=== PATIENT | male | born 1980 | race African-American/Black ===

== ENCOUNTER 2016-08-09 13:21 | Emergency (ER) | payer SELFPAY ==
[~2016-08-09] VITALS: Ht 182.9 cm; Wt 140.0 kg
[~2016-08-09 13:21] MED LIST: AUGM875T PO
[2016-08-09 13:22] VITALS: BP 121/71; PULSE 88; RESP 20; TEMP 98.9; O2SAT 95
[2016-08-09] MEDS ORDERED: HYDR-3533 PO ×2 (13:56→14:05)
[2016-08-09] MEDS ORDERED: PENI250T59 PO (13:56)
[2016-08-09] MEDS ORDERED: IBUP800T23 PO (13:56)
[2016-08-09] MEDS ORDERED: MAGICADU2 SWISH-SWAL (13:56)
--- NOTE | 2016-08-09 14:01 | PD ---
HPI Chief Complaint: Oral / Dental Pain or Problem Time Seen by Provider: 13:57 Travel History International Travel<30 days: No Contact w/Intl Traveler<30days: No Traveled to known affect area: No History of Present Illness HPI 36-year-old male that presents to the ED for evaluation of right lower dental pain and swelling. Per patient is started today. Per patient he does have about 2 in the area. He states that the pain is 10 out of 10. Denies any chest pain or shortness of breath. No purulence. Patient has not seen anybody for this. Per patient he went to work and he came in early because he couldn't stand the pain. He been taking Aleve with minimal difficulty but minimal relief as well. He has no allergies to medication. She currently has no dentist. Denies any fevers chills or sweats. PFSH Past Medical History Blood Disorders: No Cancer: No Cardiovascular Problems: No Chemotherapy: No Diminished Hearing: No Endocrine: No Genitourinary: No Musculoskeletal: No Neurologic: No Psychiatric: No Respiratory: No Immunizations Current: Yes Radiation Therapy: No Past Surgical History Other Surgery: Yes Social History Alcohol Use: Yes (RARE) Tobacco Use: No Substance Use: No (denies) Allergies-Medications (Allergen,Severity, Reaction): Coded Allergies: No Known Allergies (Unverified , 08/09/16) Reported Meds & Prescriptions Reported Meds & Active Scripts Active Magic Mouthwash Adult Liq (Multi-Ingredient Mouthwash/Gargle) 120 Ml Susp 5 Ml SWISH-SWAL ACHS Each 5 mL contains: Nystatin 200,000 units, Diphenhydramine 4.25 mg, Viscous Lidocaine 10 mg, Padgett syrup 0.8 mL Lortab (Hydrocodone-Acetaminophen) 5-325 Mg Tab 1 Tab PO Q6H PRN Ibuprofen 800 Mg Tab 800 Mg PO Q8H PRN Penicillin Vk (Penicillin V Potassium) 250 Mg Tab 250 Mg PO Q6H 14 Days Review of Systems Except as stated in HPI: all other systems reviewed are Neg Physical Exam Narrative GENERAL: SKIN: Warm and dry. HEAD: Atraumatic. Normocephalic. EYES: Pupils equal and round. No scleral icterus. No injection or drainage. ENT: No nasal bleeding or discharge. Mucous membranes pink and moist. Tongue is midline. No uvula deviation. Dental: Patient has no dentition throughout but more noted on the right lower premolar #1 which has a big cavity. Patient does have some swelling of the gum but no sign of purulence noted. Tenderness to palpation in this area. No lymphadenopathy noted. No other masses or deformities noted at this time. NECK: Trachea midline. No JVD. CARDIOVASCULAR: Regular rate and rhythm. RESPIRATORY: No accessory muscle use. Clear to auscultation. Breath sounds equal bilaterally. Data Data Last Documented VS Vital Signs Date Time Temp Pulse Resp B/P Pulse Ox O2 Delivery O2 Flow Rate FiO2 08/09/16 13:22 98.9 88 20 121/71 95 Room Air MDM Medical Decision Making Medical Screen Exam Complete: Yes Emergency Medical Condition: Yes Medical Record Reviewed: Yes Differential Diagnosis Dental abscess versus dental infection versus dentalgia Narrative Course 36-year-old male that presents to the ED for evaluation of dental pain. Patient was properly examined and was found to have signs and symptoms consistent with dental infection. Patient will be treated with this with penicillin, Magic mouthwash, Lortab, ibuprofen. Told to follow closely with PCP. See dentist. See ED worsening symptoms. Ice to the area. Note for work given Diagnosis Primary Impression: Dentalgia Patient Instructions: General Instructions Departure Forms: Tests/Procedures, Work Release Enter return to work date: Aug 11, 2016 Additional Instructions: Take medications as prescribed. Follow-up with dentist See ED for any worsening symptoms. Do not drink or drive while taking pain medication. Apply ice or heat as needed for pain Med/Other Pt SpecificInfo: Prescription(s) given Scripts Aktxuout-Dnyqizmpmqzefkn-Qtuuyfjvg Liq (Magic Mouthwash Adult Liq)120 Ml Susp5 Ml SWISH-SWAL ACHS #120 ML Ref 0 Each 5 mL contains: Nystatin 200,000 units, Diphenhydramine 4.25 mg, Viscous Lidocaine 10 mg, Padgett syrup 0.8 mL Prov:Humberto Jiang MD 08/09/16 Hydrocodone-Acetaminophen (Lortab)5-325 Mg Tab1 Tab PO Q6H PRN (PAIN) #20 TAB Prov:Humberto Jiang MD 08/09/16 Ibuprofen 800 Mg [id number] Mg PO Q8H PRN (Pain/Inflammation) #30 TAB Prov:Humberto Jiang MD 08/09/16 Penicillin V Potassium (Penicillin Vk)250 Mg [id number] Mg PO Q6H 14 Days Prov:Humberto Jiang MD 08/09/16 Disposition: 01 DISCHARGE HOME Condition: Stable Juan Pickens Aug 09, 2016 14:01
== END 2016-08-09 14:15 | disposition home or self-care (01) ==
LOC: NEPB 13:21
DX: K08.89 Other specified disorders of teeth and supporting structures (principal)
CPT/HCPCS: 99282

== ENCOUNTER 2016-08-12 19:17 | Emergency (ER) | payer SELFPAY ==
[~2016-08-12] VITALS: Ht 182.9 cm; Wt 142.0 kg
[~2016-08-12 19:17] MED LIST changes: -AUGM875T PO; +HYDR-3533 PO; +IBUP800T23 PO; +MAGICADU2 SWISH-SWAL; +PENI250T59 PO
[2016-08-12 19:24] VITALS: BP 128/79; PULSE 94; RESP 16; TEMP 99; O2SAT 96
[2016-08-12] MEDS ORDERED: CLIN150 PO (20:12)
[2016-08-12] MEDS ORDERED: CLINDAMYCIN 150 MG CAP PO ONE (20:15)
--- NOTE | 2016-08-12 20:16 | PD ---
HPI Chief Complaint: Oral / Dental Pain or Problem Time Seen by Provider: 20:13 Travel History International Travel<30 days: No Contact w/Intl Traveler<30days: No Traveled to known affect area: No History of Present Illness HPI 36-year-old black male presents to emergency Department with complaints of worsening dental abscess. He was seen here in the ER for days ago was given Pen -Vee K, Magic mouthwash and Lortab. The patient states that he has had increasing pain, swelling to the right lower mandible. While he was waiting to be seen and area opened up in his mouth and is now draining pus. He states that his face actually feels much better. He denies any fever or chills. No difficulty swallowing. PFSH Past Medical History Medical History: Denies Significant Hx Blood Disorders: No Cancer: No Cardiovascular Problems: No Chemotherapy: No Diminished Hearing: No Endocrine: No Genitourinary: No Musculoskeletal: No Neurologic: No Psychiatric: No Respiratory: No Immunizations Current: Yes Radiation Therapy: No Tetanus Vaccination: > 5 Years Influenza Vaccination: No Past Surgical History Surgical History: No Previous Surgery Other Surgery: Yes Social History Alcohol Use: Yes (RARE) Tobacco Use: No Substance Use: No (denies) Allergies-Medications (Allergen,Severity, Reaction): Coded Allergies: No Known Allergies (Unverified , 08/12/16) Reported Meds & Prescriptions Reported Meds & Active Scripts Active Lortab (Hydrocodone-Acetaminophen) 5-325 Mg Tab 1 Tab PO Q6H PRN Magic Mouthwash Adult Liq (Multi-Ingredient Mouthwash/Gargle) 120 Ml Susp 5 Ml SWISH-SWAL ACHS Each 5 mL contains: Nystatin 200,000 units, Diphenhydramine 4.25 mg, Viscous Lidocaine 10 mg, Padgett syrup 0.8 mL Ibuprofen 800 Mg Tab 800 Mg PO Q8H PRN Penicillin Vk (Penicillin V Potassium) 250 Mg Tab 250 Mg PO Q6H 14 Days Review of Systems Except as stated in HPI: all other systems reviewed are Neg General / Constitutional: No: Fever, Chills Eyes: No: Blurred Vision, Pain HENT: Positive: Gingival Bleeding, Dental Difficulties, No: Sore Throat, Congestion, Earache Cardiovascular: No: Chest Pain or Discomfort, Palpitations Respiratory: No: Cough, Shortness of Breath Physical Exam Narrative GENERAL: Well-developed, well-nourished in no acute distress. Nontoxic appearing. HEAD: Normocephalic, atraumatic. EYES: Pupils equal round and reactive. Extraocular motions intact. No scleral icterus. No injection or drainage. ENT: TMs clear without erythema. The external auditory canals clear. Nose: clear . Posterior pharynx is pink and moist. No tonsillar edema or exudate. Uvula midline. Airway patent. Patient has had multiple dental extractions. He points to his right lower mandible in the area of his premolars. There is an area of erythema and gingival distention between the buccal mucosa. There is an open draining dental abscess. NECK: Trachea midline.Supple, nontender, moves head freely. No central bony tenderness or spasm. CARDIOVASCULAR: Regular rate and rhythm without murmurs, gallops, or rubs. RESPIRATORY: Clear to auscultation. Breath sounds equal bilaterally. No wheezes , rales, or rhonchi. GASTROINTESTINAL: Abdomen soft, non-tender, nondistended. No hepato-splenomegaly , or palpable masses. No guarding. EXTREMITIES: No clubbing, cyanosis, or edema. No joint tenderness, effusion, or edema noted. BACK: Nontender without deformity or crepitance. No flank tenderness. Data Data Last Documented VS Vital Signs Date Time Temp Pulse Resp B/P Pulse Ox O2 Delivery O2 Flow Rate FiO2 08/12/16 19:24 99.0 94 16 128/79 96 Room Air Orders Clindamycin (Cleocin) (08/12/16 20:15) [facility] Medical Decision Making Medical Screen Exam Complete: Yes Emergency Medical Condition: Yes Medical Record Reviewed: Yes Differential Diagnosis MDM: Moderate Differential diagnoses: Dental abscess, dental caries, osteitis, cellulitis Narrative Course Patient is given clindamycin 300 mg by mouth. At this point it dental abscess is draining no additional drainage is required. This is dental abscess Diagnosis Primary Impression: Dental abscess Patient Instructions: General Instructions Additional Instructions: Rest. [place] gargles. [place] oil on cotton balls. Clindamycin follow-up with a dentist as soon as possible. And return to the ER if any problems. Med/Other Pt SpecificInfo: Prescription(s) given Scripts Clindamycin (Cleocin)150 Mg [id number] Mg PO Q6H #80 CAP Prov:Soontharothai,Rewadee MD 08/12/16 Disposition: 01 DISCHARGE HOME Condition: Stable Sergio Sun Aug 12, 2016 20:16
== END 2016-08-12 20:41 | disposition home or self-care (01) ==
LOC: NEPB 19:17
DX: K04.7 Periapical abscess without sinus (principal)
CPT/HCPCS: 99282

== ENCOUNTER 2016-12-03 16:52 | Emergency (ER) | payer SELFPAY ==
[~2016-12-03] VITALS: Ht 182.9 cm; Wt 140.0 kg
[2016-12-03 16:53] VITALS: BP 138/87; PULSE 79; RESP 16; TEMP 97.9; O2SAT 95
--- NOTE | 2016-12-03 16:58 | PD ---
Physical Exam Time Seen by Provider: 16:55 Narrative 36yo M c/o chest tightness and SOB x2 days. Continuous. Denies chest pain, heart palpitations. Denies upper respiratory symptoms. Cameron hemoptysis. Denies hx COPD, asthma, tobacco use. VS reviewed. Patient seen in triage. Awaiting bed placement. Data Data Last Documented VS Vital Signs Date Time Temp Pulse Resp B/P Pulse Ox O2 Delivery O2 Flow Rate FiO2 12/03/16 16:53 97.9 79 16 138/87 95 MDM Supervised Visit with MONIKA: Rossy Serrano December 03, 2016 16:58
[2016-12-03 17:00] VITALS: O2SAT 98
[2016-12-03 17:04] VITALS: BP 138/77; PULSE 82; RESP 17; O2SAT 98
[2016-12-03] MEDS ORDERED: ASPIRIN 81 MG CHEW TAB PO ONE (17:15)
[2016-12-03] MEDS ORDERED: SODIUM CHLORID 0.9% 500 ML INJ 500 ML IV ONE (17:15)
[2016-12-03] MEDS ORDERED: NITROGLYCERIN 0.4 MG SL 25 TABS/BTL SL ONE (17:15)
[2016-12-03] MEDS ORDERED: SODIUM CHLORIDE 0.9% FLUSH 10 ML FLUSH IVF PRN (17:15)
--- NOTE | 2016-12-03 17:18 | PD ---
HPI Chief Complaint: Chest Pain Time Seen by Provider: 16:59 Travel History International Travel<30 days: No Contact w/Intl Traveler<30days: No Traveled to known affect area: No History of Present Illness HPI The patient is a 36-year-old after [place] male who presents emergency department for chest pain. The patient states he developed chest pain 2 days ago. The chest pain is substernal, heavy and pressure-like, nonradiating, and associated mild shortness of breath. The patient states pain is worse with inspiration and activity. The patient denies any nausea, vomiting, or diaphoresis. The patient denies any history of CAD, hypertension, hyperlipidemia, diabetes, tobacco use, or significant family medical history of early coronary artery disease. 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 The patient denies any recent fever, chills, sweats, or cough. Symptoms are moderate, slightly exacerbated by inspiration, and there are no current alleviating factors. He denies any history of pulmonary embolism or DVT. PFSH Past Medical History Medical History: Denies Significant Hx Blood Disorders: No Cancer: No Cardiovascular Problems: No Chemotherapy: No Diminished Hearing: No Endocrine: No Genitourinary: No Musculoskeletal: No Neurologic: No Psychiatric: No Respiratory: No Immunizations Current: Yes Radiation Therapy: No ?: Not Past Surgical History Surgical History: No Previous Surgery Other Surgery: Yes Social History Alcohol Use: Yes (RARE) Tobacco Use: No Substance Use: No (denies) Allergies-Medications (Allergen,Severity, Reaction): Coded Allergies: No Known Allergies (Unverified , 12/03/16) Reported Meds & Prescriptions Reported Meds & Active Scripts Active No Active Prescriptions or Reported Medications Physical Exam Narrative GENERAL: Awake, alert, pleasant 36-year-old male who appears his stated age is in no acute respiratory distress. SKIN: Focused skin assessment warm/dry. HEAD: Atraumatic. Normocephalic. EYES: Pupils equal and round. No scleral icterus. No injection or drainage. ENT: No nasal bleeding or discharge. Mucous membranes pink and moist. NECK: Trachea midline. No JVD. CARDIOVASCULAR: Regular rate and rhythm. No murmur appreciated. Palpation of the chest wall does not reproduce symptoms. Gynecomastia noted. RESPIRATORY: No accessory muscle use. Clear to auscultation. Breath sounds equal bilaterally. GASTROINTESTINAL: Abdomen soft, non-tender, nondistended. No rebound tenderness. MUSCULOSKELETAL: No obvious deformities. No clubbing. No cyanosis. No edema. NEUROLOGICAL: Awake and alert. No obvious cranial nerve deficits. Motor grossly within normal limits. Normal speech. PSYCHIATRIC: Appropriate mood and affect; insight and judgment normal. Data Data Last Documented VS Vital Signs Date Time Temp Pulse Resp B/P Pulse Ox O2 Delivery O2 Flow Rate FiO2 12/03/16 17:30 72 15 124/74 99 Room Air 12/03/16 16:53 97.9 Orders Electrocardiogram (12/03/16 ) Electrocardiogram (12/03/16 17:08) Ckmb (Isoenzyme) Profile (12/03/16 17:08) Complete Blood Count With Diff (12/03/16 17:08) Comprehensive Metabolic Panel (12/03/16 17:08) Magnesium (Mg) (12/03/16 17:08) Prothrombin Time / Inr (Pt) (12/03/16 17:08) Act Partial Throm Time (Ptt) (12/03/16 17:08) Troponin I (12/03/16 17:08) Lipase (12/03/16 17:08) Chest, Single Ap (12/03/16 17:08) Ecg Monitoring (12/03/16 17:08) Bilateral Bp Monitoring (12/03/16 17:08) Iv Access Insert/Monitor (12/03/16 17:08) Oximetry (12/03/16 17:08) Oxygen Administration (12/03/16 17:08) Aspirin Chew (Aspirin Chew) (12/03/16 17:15) Sodium Chloride 0.9% Flush (Ns Flush) (12/03/16 17:15) Nitroglycerin Sl (Nitrostat Sl) (12/03/16 17:15) Sodium Chlorid 0.9% 500 Ml Inj (Ns 500 M (12/03/16 17:15) CKMB (12/03/16 17:10) CKMB% (12/03/16 17:10) Troponin I (12/03/16 20:10) Labs Laboratory Tests Test 12/03/16 17:10 White Blood Count 5.3 TH/MM3 Red Blood Count 5.53 MIL/MM3 Hemoglobin 13.5 GM/DL Hematocrit 43.0 % Mean Corpuscular Volume 77.8 FL Mean Corpuscular Hemoglobin 24.3 PG Mean Corpuscular Hemoglobin 31.3 % Concent Red Cell Distribution Width 15.0 % Platelet Count 234 TH/MM3 Mean Platelet Volume 8.1 FL Neutrophils (%) (Auto) 49.8 % Lymphocytes (%) (Auto) 41.1 % Monocytes (%) (Auto) 7.6 % Eosinophils (%) (Auto) 1.1 % Basophils (%) (Auto) 0.4 % Neutrophils # (Auto) 2.7 TH/MM3 Lymphocytes # (Auto) 2.2 TH/MM3 Monocytes # (Auto) 0.4 TH/MM3 Eosinophils # (Auto) 0.1 TH/MM3 Basophils # (Auto) 0.0 TH/MM3 CBC Comment AUTO DIFF Differential Comment AUTO DIFF CONFIRMED Platelet Estimate LOW Platelet Morphology Comment ENLARGED Ovalocytes 1+ Prothrombin Time 10.0 SEC Prothromb Time International 0.9 RATIO Ratio Activated Partial 29.4 SEC Thromboplast Time Sodium Level 142 MEQ/L Potassium Level 4.0 MEQ/L Chloride Level 104 MEQ/L Carbon Dioxide Level 29.8 MEQ/L Anion Gap 8 MEQ/L Blood Urea Nitrogen 8 MG/DL Creatinine 1.06 MG/DL Estimat Glomerular Filtration 97 ML/MIN Rate Random Glucose 96 MG/DL Calcium Level 9.3 MG/DL Magnesium Level 2.2 MG/DL Total Bilirubin 0.6 MG/DL Aspartate Amino Transf 27 U/L (AST/SGOT) Alanine Aminotransferase 44 U/L (ALT/SGPT) Alkaline Phosphatase 78 U/L Total Creatine Kinase 581 U/L Creatine Kinase MB 5.2 NG/ML Creatine Kinase MB % 0.9 % Troponin I LESS THAN 0.02 NG/ML Total Protein 8.0 GM/DL Albumin 3.8 GM/DL Lipase 86 U/L [facility] Medical Decision Making Medical Screen Exam Complete: Yes Emergency Medical Condition: Yes Medical Record Reviewed: Yes Interpretation(s) EKG reveals normal sinus rhythm with a rate of 76. J-point elevation noted, appears to be early repolarization. Q wave with inverted T-wave in lead 3. Differential Diagnosis Differential diagnosis includes acute coronary syndrome, GERD, esophageal spasm , esophagitis, pulmonary embolism, deconditioning, pleural effusion, pericarditis, pericardial effusion, costochondritis. Narrative Course IV was established, labs were drawn and sent, and the patient was placed on cardiac telemetry monitoring and continuous pulse oximetry monitoring. EKG was ordered and interpreted. The patient was administered aspirin and nitroglycerin sublingual. Chest x-ray was obtained. Chest x-rays negative. Initial troponin is unremarkable. EKG reveals J-point elevation with early repolarization. The patient was reevaluated at 6 PM, he was asymptomatic. I had a discussion with the patient guarding 23 hour observation in the chest pain Center, however, the patient states his work at 5 AM does not want to miss work. The patient was agreeable to stay for a second troponin, if negative, he will be discharged home, if positive, admitted. Therefore, the patient was signed out to the oncoming physician at 7 PM with second troponin pending. Diagnosis Primary Impression: Atypical chest pain Patient Instructions: General Instructions Additional Instructions: Take a baby aspirin daily. Follow-up with her primary physician, you may benefit from outpatient stress test. Return if symptoms worsen or progress. Med/Other Pt SpecificInfo: Other (take a baby aspirin daily.) Scripts No Active Prescriptions or Reported Meds Disposition: 01 DISCHARGE HOME Condition: Stable Humberto Jiang MD December 03, 2016 17:18
[2016-12-03 17:25] LABS: AUTOMATED NEUTROPHIL # 2.7 TH/MM3 (1.8-7.7); BASOPHIL % 0.4 % (0.0-2.0); EOSINOPHIL # 0.1 TH/MM3 (0-0.4); EOSINOPHIL % 1.1 % (0.0-4.0); LYMPH % 41.1 % (9.0-44.0); LYMPHOCYTE # 2.2 TH/MM3 (1.0-4.8); MEAN CELL VOLUME 77.8 FL (80.0-100.0); MEAN CORPUSCULAR HEMOGLOBIN 24.3 PG (27.0-34.0); MEAN CORPUSCULAR HGB CONC 31.3 % (32.0-36.0); MONO % 7.6 % (0.0-8.0); NEUT % 49.8 % (16.0-70.0); PLATELET COUNT 234 TH/MM3 (150-450); RED BLOOD COUNT 5.53 MIL/MM3 (4.50-5.90); WHITE BLOOD COUNT 5.3 TH/MM3 (4.0-11.0)
[2016-12-03 17:26] LABS: HEMO FLAGS AUTO DIFF
[2016-12-03 17:30] VITALS: BP 124/74; PULSE 72; RESP 15; O2SAT 99
--- NOTE | 2016-12-03 17:36 | RADRPT ---
EXAM DATE/TIME: 12/03/2016 17:21 [facility] COMPARISON: No previous studies available for comparison. INDICATIONS : Chest pain. MEDICAL HISTORY : None. SURGICAL HISTORY : None. ENCOUNTER: Initial ACUITY: 1 day PAIN SCORE: 6/10 LOCATION: Bilateral chest FINDINGS: Heart is mildly enlarged. Lungs are hypoaerated. There are no consolidating infiltrates or evidence of significant congestion. CONCLUSION: Mild cardiomegaly No acute disease. Tr Hoff MD on December 03, 2016 at 17:34 Board Certified Radiologist. This report was verified electronically.
[2016-12-03 17:37] LABS: APTT (PATIENT) 29.4 SEC (24.3-30.1); INTERNATIONAL NORMALIZED RATIO 0.9 RATIO
[2016-12-03 17:43] LABS: ALT (GPT) 44 U/L (12-78); ANION GAP 8 MEQ/L (5-15); AST (GOT) 27 U/L (15-37); BICARBONATE 29.8 MEQ/L (21.0-32.0); BLOOD UREA NITROGEN 8 MG/DL (7-18); CHLORIDE 104 MEQ/L (98-107); GLOMERULAR FILTRATION RATE 97 ML/MIN (>89); MAGNESIUM 2.2 MG/DL (1.5-2.5); SODIUM (NA) 142 MEQ/L (136-145)
[2016-12-03 17:46] LABS: ALKALINE PHOSPHATASE 78 U/L (45-117); CREATINE KINASE 581 U/L (39-308); TOTAL BILIRUBIN ADULT 0.6 MG/DL (0.2-1.0)
[2016-12-03 17:59] LABS: CKMB 5.2 NG/ML (0.5-3.6)
[2016-12-03 18:00] LABS: OVALOCYTES 1+ (NORMAL); PLATELET ESTIMATE SMEAR LOW (NORMAL); PLATELET MORPHOLOGY ENLARGED (NORMAL); SCAN/DIFF AUTO DIFF CONFIRMED
--- NOTE | 2016-12-03 22:20 | PD ---
Data Data Last Documented VS Vital Signs Date Time Temp Pulse Resp B/P Pulse Ox O2 Delivery O2 Flow Rate FiO2 12/03/16 17:30 72 15 124/74 99 Room Air 12/03/16 16:53 97.9 Orders Electrocardiogram (12/03/16 ) Electrocardiogram (12/03/16 17:08) Ckmb (Isoenzyme) Profile (12/03/16 17:08) Complete Blood Count With Diff (12/03/16 17:08) Comprehensive Metabolic Panel (12/03/16 17:08) Magnesium (Mg) (12/03/16 17:08) Prothrombin Time / Inr (Pt) (12/03/16 17:08) Act Partial Throm Time (Ptt) (12/03/16 17:08) Troponin I (12/03/16 17:08) Lipase (12/03/16 17:08) Chest, Single Ap (12/03/16 17:08) Ecg Monitoring (12/03/16 17:08) Bilateral Bp Monitoring (12/03/16 17:08) Iv Access Insert/Monitor (12/03/16 17:08) Oximetry (12/03/16 17:08) Oxygen Administration (12/03/16 17:08) Aspirin Chew (Aspirin Chew) (12/03/16 17:15) Sodium Chloride 0.9% Flush (Ns Flush) (12/03/16 17:15) Nitroglycerin Sl (Nitrostat Sl) (12/03/16 17:15) Sodium Chlorid 0.9% 500 Ml Inj (Ns 500 M (12/03/16 17:15) CKMB (12/03/16 17:10) CKMB% (12/03/16 17:10) Troponin I (12/03/16 20:10) Labs Laboratory Tests Test 12/03/16 12/03/16 17:10 20:05 White Blood Count 5.3 TH/MM3 Red Blood Count 5.53 MIL/MM3 Hemoglobin 13.5 GM/DL Hematocrit 43.0 % Mean Corpuscular Volume 77.8 FL Mean Corpuscular Hemoglobin 24.3 PG Mean Corpuscular Hemoglobin 31.3 % Concent Red Cell Distribution Width 15.0 % Platelet Count 234 TH/MM3 Mean Platelet Volume 8.1 FL Neutrophils (%) (Auto) 49.8 % Lymphocytes (%) (Auto) 41.1 % Monocytes (%) (Auto) 7.6 % Eosinophils (%) (Auto) 1.1 % Basophils (%) (Auto) 0.4 % Neutrophils # (Auto) 2.7 TH/MM3 Lymphocytes # (Auto) 2.2 TH/MM3 Monocytes # (Auto) 0.4 TH/MM3 Eosinophils # (Auto) 0.1 TH/MM3 Basophils # (Auto) 0.0 TH/MM3 CBC Comment AUTO DIFF Differential Comment AUTO DIFF CONFIRMED Platelet Estimate LOW Platelet Morphology Comment ENLARGED Ovalocytes 1+ Prothrombin Time 10.0 SEC Prothromb Time International 0.9 RATIO Ratio Activated Partial 29.4 SEC Thromboplast Time Sodium Level 142 MEQ/L Potassium Level 4.0 MEQ/L Chloride Level 104 MEQ/L Carbon Dioxide Level 29.8 MEQ/L Anion Gap 8 MEQ/L Blood Urea Nitrogen 8 MG/DL Creatinine 1.06 MG/DL Estimat Glomerular Filtration 97 ML/MIN Rate Random Glucose 96 MG/DL Calcium Level 9.3 MG/DL Magnesium Level 2.2 MG/DL Total Bilirubin 0.6 MG/DL Aspartate Amino Transf 27 U/L (AST/SGOT) Alanine Aminotransferase 44 U/L (ALT/SGPT) Alkaline Phosphatase 78 U/L Total Creatine Kinase 581 U/L Creatine Kinase MB 5.2 NG/ML Creatine Kinase MB % 0.9 % Troponin I LESS THAN 0.02 LESS THAN 0.02 NG/ML NG/ML Total Protein 8.0 GM/DL Albumin 3.8 GM/DL Lipase 86 U/L MDM Supervised Visit with MONIKA: Yes Narrative Course 36 old man with chest pain, sign-up to follow-up a repeat troponin. Troponin negative. Diagnosis Primary Impression: Atypical chest pain Patient Instructions: General Instructions Additional Instruction: Take a baby aspirin daily. Follow-up with her primary physician, you may benefit from outpatient stress test. Return if symptoms worsen or progress. Scripts No Active Prescriptions or Reported Meds Disposition: 01 DISCHARGE HOME Condition: Stable Greg Avelar MD December 03, 2016 22:20
--- NOTE | 2016-12-04 17:08 | EKG ---
Date Performed: 12/03/2016 Time Performed: 17:05:40 PTAGE: 36 years EKG: Sinus rhythm ST ELEVATION, PROBABLY EARLY REPOLARIZATION BORDERLINE ECG There is evidence of ST elevation inferio r and anterolaterally. Most likely early repolarization. This may also represent pericarditis. NO PREVIOUS TRACING DOCTOR: Kerry Can Interpretating Date/Time 12/04/2016 17:07:29
--- NOTE | 2016-12-04 17:09 | EKG ---
Date Performed: 12/03/2016 Time Performed: 20:05:14 PTAGE: 36 years EKG: Sinus rhythm EARLY REPOLARIZATION BORDERLINE ECG Compared to PREVIOUS TRACING , there is further ST elevation inferior and anterolaterally. This may r epresent pericarditis or maybe early repolarization. Clinical correlation is recommended. PREVIOUS TR ACIN12/03/2016 17.05 DOCTOR: Kerry Can Interpretating Date/Time 12/04/2016 17:08:36
== END 2016-12-03 23:27 | disposition home or self-care (01) ==
LOC: NEPE 16:52
DX: R07.89 Other chest pain (principal); R06.02 Shortness of breath; R94.31 Abnormal electrocardiogram [ECG] [EKG]
CPT/HCPCS: 71010; 80053; 82550; 82552; 83690; 83735; 84484; 85025; 85610; 85730; 93005; 96360; 99285; J7040

== ENCOUNTER 2017-09-13 05:07 | Emergency (ER) | payer SELFPAY ==
[~2017-09-13] VITALS: Ht 182.9 cm; Wt 138.0 kg
[2017-09-13 05:09] VITALS: BP 120/69; PULSE 82; RESP 18; TEMP 101.5; O2SAT 96
[2017-09-13] MEDS ORDERED: OSEL75 PO (05:25)
[2017-09-13] MEDS ORDERED: ZOFR4TAB3 SL (05:25)
[2017-09-13] MEDS ORDERED: OSELTAMIVIR PHOSPHATE 75 MG CAP PO ONE (05:30)
[2017-09-13] MEDS ORDERED: KETOROLAC TROMETHAMINE 60 MG/2 ML (IM) VIAL IM ONE (05:30)
[2017-09-13] MEDS ORDERED: ONDANSETRON ODT 4 MG TAB PO ONE (05:30)
--- NOTE | 2017-09-13 05:36 | PD ---
HPI Chief Complaint: Cold / Flu Symptoms Time Seen by Provider: 05:15 Travel History International Travel<30 days: No Contact w/Intl Traveler<30days: No Traveled to known affect area: No History of Present Illness HPI patient states that since saturday (about 3 days ago) started having sore throat , runny nose, and dry cough. patient states that he has also had occasional n/ v and occasional diarrhea as well. pt states he has had low grade fever. pt denies any alleviating/aggravating factors. patient denies assoc factors such as meneses/cp/abdpain/backpain/ all:nkda no sig pmhx/pshx PFSH Past Medical History Blood Disorders: No Cancer: No Cardiovascular Problems: No Chemotherapy: No Diminished Hearing: No Endocrine: No Genitourinary: No Musculoskeletal: No Neurologic: No Psychiatric: No Respiratory: No Immunizations Current: Yes Radiation Therapy: No Tetanus Vaccination: < 5 Years Influenza Vaccination: No Past Surgical History Other Surgery: Yes Social History Alcohol Use: Yes (RARE) Tobacco Use: No Substance Use: No (denies) Allergies-Medications (Allergen,Severity, Reaction): Coded Allergies: No Known Allergies (Unverified , 12/03/16) Reported Meds & Prescriptions Reported Meds & Active Scripts Active Zofran Odt (Ondansetron Odt) 4 Mg Tab 4 Mg SL Q6HR PRN Tamiflu (Oseltamivir Phosphate) 75 Mg Cap 75 Mg PO BID Review of Systems General / Constitutional: No: Fever Eyes: No: Visual changes HENT: Positive: Sore Throat, Rhinorrhea Cardiovascular: No: Chest Pain or Discomfort Respiratory: Positive: Cough Gastrointestinal: No: Abdominal Pain Genitourinary: No: Dysuria Musculoskeletal: No: Pain Skin: No Rash Neurologic: No: Weakness Psychiatric: No: Depression Endocrine: No: Polydipsia Hematologic/Lymphatic: No: Easy Bruising Physical Exam Narrative GENERAL: SKIN: Warm and dry. HEAD: Atraumatic. Normocephalic. EYES: Pupils equal and round. No scleral icterus. No injection or drainage. ENT: No nasal bleeding or discharge. Mucous membranes pink and moist. NECK: Trachea midline. No JVD. CARDIOVASCULAR: Regular rate and rhythm. RESPIRATORY: No accessory muscle use. Clear to auscultation. Breath sounds equal bilaterally. GASTROINTESTINAL: Abdomen soft, non-tender, nondistended. MUSCULOSKELETAL: Extremities without clubbing, cyanosis, or edema. No obvious deformities. NEUROLOGICAL: Awake and alert. No obvious cranial nerve deficits. Motor grossly within normal limits. Five out of 5 muscle strength in the arms and legs. Normal speech. PSYCHIATRIC: Appropriate mood and affect; insight and judgment normal. Data Data Last Documented VS Vital Signs Date Time Temp Pulse Resp B/P (MAP) Pulse Ox O2 Delivery O2 Flow Rate FiO2 09/13/17 05:39 09/13/17 05:09 101.5 82 18 96 Room Air Orders Orders Ondansetron Odt (Zofran Odt) (09/13/17 05:30) Oseltamivir (Tamiflu) (09/13/17 05:30) Ketorolac Inj (Toradol Inj) (09/13/17 05:30) Ed Discharge Order (09/13/17 05:36) [facility] Medical Decision Making Medical Screen Exam Complete: Yes Emergency Medical Condition: Yes Medical Record Reviewed: Yes Differential Diagnosis viral syndrome v uri v flu Narrative Course due to high local incidence of flu, so will empirically treat Diagnosis Primary Impression: Influenza Patient Instructions: General Instructions, Influenza (DC) Scripts Ondansetron Odt (Zofran Odt) 4 Mg Tab 4 MG SL Q6HR Y for Nausea/Vomiting, #20 TAB 0 Refills Prov: Ronnie Fernandez MD 09/13/17 Oseltamivir (Tamiflu) 75 Mg Cap 75 MG PO BID for Mgmt Viral Infection, #10 CAP 0 Refills Prov: Ronnie Fernandez MD 09/13/17 Disposition: 01 DISCHARGE HOME Condition: Stable Ronnie Fernandez MD Sep 13, 2017 05:36
== END 2017-09-13 05:54 | disposition home or self-care (01) ==
LOC: NEPE 05:07
DX: J11.1 Influenza due to unidentified influenza virus with other respiratory manifestations (principal)
CPT/HCPCS: 96372; 99283; J1885